=== PATIENT | female | born 1935 | race Caucasian/White ===

== ENCOUNTER → 2016-07-13 | Outpatient (CLI) | payer OTHER ==
[~2016-07-13] VITALS: Ht 160 cm; Wt 71.1 kg
[~2016-07-13] MED LIST: ASAC400T PO; ASPI81CH CHEW; CHLORHEXIDINE GLUCONATE 2 % 1 PACK (2 CLOTHS) TOPICAL PRN; DEXTROSE 5% IN WATE 1000ML INJ 1,000 ML IV SCH; INSULIN HUMAN REGULAR 1,000 UNITS/10 ML VIAL SQ PRN; LACTATED RINGER'S 1000 ML IV PRN; METO100T PO; METOPROLOL TARTRATE 25 MG TAB PO PRN; POVIDONE IODINE 5% (ANTISEPSIS KIT) 4 APPLICATIONS EACH NARE PRN; SODIUM CHLORID 0.9% 500 ML IV PRN; TOPR100T15 PO
[2016-07-13 13:02] VITALS: BP 187/92; PULSE 101; RESP 20; TEMP 98.7; O2SAT 98
[2016-07-13 14:25] VITALS: TEMP 98.2
[2016-07-13 14:45] VITALS: BP 150/82; PULSE 95; RESP 16; O2SAT 99
--- NOTE | 2016-07-14 06:39 | MR ---
cc: MAYURI CASTANON M.D., DAVID L. MD DATE 07/13/2016 PREOPERATIVE DIAGNOSIS Crohn's disease with sigmoid stricture. POSTOPERATIVE DIAGNOSIS Crohn's disease with sigmoid stricture. PROCEDURE Colonoscopy with biopsy and stricture. SURGEON Andrei Thomas MD ANESTHESIA MAC. INDICATION This is a 80-year with history of Crohn's disease for many years. The Crohn's has involved her left colon in a segmental fashion. She also has extensive diverticulosis. She underwent surveillance colonoscopy recently; a stricture was encountered in the mid-sigmoid. It was not possible to pass the colonoscope. The patient subsequently underwent a Gastrografin enema which showed a significant stricture in the sigmoid. A subsequent CAT scan showed two areas of colonic thickening in the sigmoid over the mid-sigmoid and proximal sigmoid colon. The patient presents for endoscopic visualization with the pediatric colonoscope. PROCEDURE The pediatric gastroscope was inserted from the anus to the ascending colon. It was felt that partial cecal visualization was achieved. The instrument was withdrawn. There were two areas of narrowing in the sigmoid colon. In the proximal sigmoid there were inflammatory folds and some mucosal changes suggestive of inflammatory bowel disease. A biopsy was obtained. In the mid-sigmoid colon there was an area that was a more significant fibrotic stricture associated with angulation. There were a few inflammatory changes present in this location. A biopsy was obtained. There were no visible changes of malignancy at either stricture site. The lumen was felt to be approximately 1 cm in size in the distal stricture and was somewhat larger in the proximal one. Extensive diverticulosis was noted. PLAN The patient will be followed in the office to discuss further management of these strictures after the biopsies are evaluated. MD VAISHNAVI Floyd/RAISA /2:22 PM /6:32 AM
--- NOTE | 2016-07-14 14:50 | EKG ---
Date Performed: 07/13/2016 Time Performed: 11:52:32 PTAGE: 80 years EKG: ATRIAL FIBRILLATION NONSPECIFIC ST & T-WAVE ABNORMALITY Compared to prior tracing the rate has slowed somewhat ABNORMAL RHYTHM ECG PREVIOUS TRACING : 01/21/2008 10.51 DOCTOR: Remington Woody Interpretating Date/Time 07/14/2016 14:48:30
== END ==
LOC: HEND 11:02
PROVIDERS: ATTEND Colon & Rectal Surgery
DX: K50.90 Crohn's disease, unspecified, without complications (principal); K56.69 Other intestinal obstruction; K57.90 Diverticulosis of intestine, part unspecified, without perforation or abscess without bleeding; R94.31 Abnormal electrocardiogram [ECG] [EKG]; K52.9 Noninfective gastroenteritis and colitis, unspecified
CPT/HCPCS: 88305; 93005

== ENCOUNTER → 2017-03-13 | Outpatient (CLI) | payer OTHER ==
[~2017-03-13] MED LIST changes: +ACETAMINOPHEN 1000 MG/100 ML 0 ML IV ONE; -ASAC400T PO; +ASPI-516 CHEW; -ASPI81CH CHEW; -CHLORHEXIDINE GLUCONATE 2 % 1 PACK (2 CLOTHS) TOPICAL PRN; -DEXTROSE 5% IN WATE 1000ML INJ 1,000 ML IV SCH; +HYDR-3516 PO; -INSULIN HUMAN REGULAR 1,000 UNITS/10 ML VIAL SQ PRN; -LACTATED RINGER'S 1000 ML IV PRN; -METOPROLOL TARTRATE 25 MG TAB PO PRN; -POVIDONE IODINE 5% (ANTISEPSIS KIT) 4 APPLICATIONS EACH NARE PRN; +RANI150T PO; -SODIUM CHLORID 0.9% 500 ML IV PRN; +SULF500T3 PO; -TOPR100T15 PO
[2017-03-13 10:45] LABS: HEMATOCRIT 34.5 % (35.0-46.0); HEMOGLOBIN 11.5 GM/DL (11.6-15.3); MEAN CELL VOLUME 86.7 FL (80.0-100.0); MEAN CORPUSCULAR HEMOGLOBIN 28.9 PG (27.0-34.0); MEAN CORPUSCULAR HGB CONC 33.3 % (32.0-36.0); MEAN PLATELET VOLUME 8.2 FL (7.0-11.0); PLATELET COUNT 348 TH/MM3 (150-450); RED BLOOD COUNT 3.98 MIL/MM3 (4.00-5.30); RED CELL DISTRIBUTION WIDTH 15.1 % (11.6-17.2); WHITE BLOOD COUNT 8.5 TH/MM3 (4.0-11.0)
--- NOTE | 2017-03-13 11:00 | RADRPT ---
EXAM DATE/TIME: 03/13/2017 10:45 [facility] COMPARISON: No previous studies available for comparison. INDICATIONS : Evaluate for pneumonia, pneumothorax or communicable disease. Preop chest for exploratory laparotomy on 03/15/17 MEDICAL HISTORY : None. SURGICAL HISTORY : None. ENCOUNTER: Initial ACUITY: 1 day PAIN SCORE: 0/10 LOCATION: Bilateral chest FINDINGS: There is a questionable faint 1.5 cm opacity density in the left midlung field PA view only. Nodule o r infiltrate not excludable. CT scan may be within consideration. Additionally appreciated is left ve ntricular cardiomegaly compensated. CONCLUSION: Questionable faint nodule left midlung field require further evaluation with CT scan. Compensated left ventricular cardiomegaly. José Luis Resendez MD on March 13, 2017 at 10:55 Board Certified Radiologist. This report was verified electronically.
[2017-03-13 11:15] LABS: INTERNATIONAL NORMALIZED RATIO 1.2 RATIO; PROTHROMBIN TIME - PATIENT 11.9 SEC (9.8-11.6)
[2017-03-13 11:16] LABS: ALBUMIN 3.6 GM/DL (3.4-5.0); ALT (GPT) 26 U/L (10-53); AST (GOT) 18 U/L (15-37); BICARBONATE 29.2 MEQ/L (21.0-32.0); BLOOD UREA NITROGEN 17 MG/DL (7-18); CALCIUM 9.5 MG/DL (8.5-10.1); CHLORIDE 106 MEQ/L (98-107); CREATININE 0.95 MG/DL (0.50-1.00); GLOMERULAR FILTRATION RATE 57 ML/MIN (>89); GLUCOSE,FASTING 100 MG/DL (74-99); SODIUM (NA) 141 MEQ/L (136-145)
[2017-03-13 11:18] LABS: ALKALINE PHOSPHATASE 122 U/L (45-117); TOTAL BILIRUBIN ADULT 0.4 MG/DL (0.2-1.0); TOTAL PROTEIN 8.3 GM/DL (6.4-8.2)
[2017-03-13 11:24] LABS: BILIRUBIN, URINE NEG (NEG); BLOOD, URINE TRACE (NEG); GLUCOSE,URINE NEG (NEG); KETONE, URINE NEG (NEG); MUCUS URINE FEW /lpf (OCC); NITRITE,URINE NEG (NEG); URINE COLOR YELLOW (YELLW/STRAW); URINE LEUKOCYTE ESTERASE NEG (NEG)
[2017-03-13 12:50] LABS: BANDS 7 % (0-6); LYMPHOCYTES 18 % (9-44); MONOCYTES 10 % (0-8); NEUTROPHIL # MANUAL DIFF 6.1 TH/MM3 (1.8-7.7); POLYS (SEG NEUTROPHILS) 65 % (16-70)
--- NOTE | 2017-03-14 15:09 | EKG ---
Date Performed: 03/13/2017 Time Performed: 10:31:26 PTAGE: 81 years EKG: Atrial fibrillation. Since previous tracing, no significant change noted Abnormal ECG PREVIOUS TRACING : 07/13/2016 11.52 DOCTOR: Elizabeth Hein Interpretating Date/Time 03/14/2017 15:08:53
== END ==
LOC: CPRE 09:38
PROVIDERS: ATTEND Colon & Rectal Surgery
DX: Z01.810 Encounter for preprocedural cardiovascular examination (principal); Z01.811 Encounter for preprocedural respiratory examination; Z01.812 Encounter for preprocedural laboratory examination; K50.10 Crohn's disease of large intestine without complications; I48.91 Unspecified atrial fibrillation; Z79.01 Long term (current) use of anticoagulants
CPT/HCPCS: 36415; 71046; 80053; 81001; 85007; 85027; 85610; 85730; 86850; 86900; 86901; 93005

== ENCOUNTER 2017-03-15 09:30 | Inpatient (IN) | payer OTHER, MEDICARE ==
[~2017-03-15] VITALS: Ht 157.5 cm; Wt 72.0 kg
[~2017-03-15 09:30] MED LIST changes: -ACETAMINOPHEN 1000 MG/100 ML 0 ML IV ONE; -HYDR-3516 PO
--- NOTE | 2017-03-15 09:59 | PD.HP.UP ---
H&P Update Note The Pre-Admit History and Physical Examination regarding the above named patient was reviewed (including, but not limited to, vital signs, heart, lungs, co-morbid conditions), and upon re-examination it is noted that: the patient's condition has not significantly changed since the last examination. Devon Kidd MD Mar 15, 2017 09:59
[2017-03-15] MEDS ORDERED: SODIUM CHLORID 0.9% 500 ML IV PRN (10:45)
[2017-03-15] MEDS ORDERED: POVIDONE IODINE 5% (ANTISEPSIS KIT) 4 APPLICATIONS EACH NARE PRN (10:45)
[2017-03-15] MEDS ORDERED: METRONIDAZOLE 500 MG/100 ML ISONTONIC SOLN IV SCH (10:45)
[2017-03-15] MEDS ORDERED: CHLORHEXIDINE GLUCONATE 2 % 1 PACK (2 CLOTHS) TOPICAL PRN (10:45)
[2017-03-15] MEDS ORDERED: ALVIMOPAN 12 MG CAPSULE - On Call PO SCH (10:45)
[2017-03-15] MEDS ORDERED: LACTATED RINGER'S 1000 ML IV PRN (10:45)
[2017-03-15] MEDS ORDERED: METOPROLOL TARTRATE 25 MG TAB PO PRN (10:45)
[2017-03-15] MEDS ORDERED: ceFAZolin 1,000 MG/NS 100 ML IV SCH ×2 (10:45)
[2017-03-15] MEDS ORDERED: DEXT 5%-NACL 0.9% 1000 ML INJ 1,000 ML IV SCH (11:00)
[2017-03-15 11:27] LABS: INTERNATIONAL NORMALIZED RATIO 1.2 RATIO; PROTHROMBIN TIME - PATIENT 12.5 SEC (9.8-11.6)
[2017-03-15] MEDS ORDERED: DO NOT ADM ANY ANTICOAGULANT DRUGS PRN (14:28)
[2017-03-15] MEDS ORDERED: ONDANSETRON HCL 4 MG/2 ML VIAL IV PUSH PRN (14:30)
[2017-03-15] MEDS ORDERED: ENALAPRILAT 1.25 MG/ML VIAL IV PUSH PRN (14:30)
[2017-03-15] MEDS ORDERED: POTASSIUM CHLOR 20 MEQ PREMIX 100 ML IV PRN (14:30)
[2017-03-15] MEDS ORDERED: MORPHINE SULFATE 30 MG/30 ML PCA IV SCH (14:30)
[2017-03-15] MEDS ORDERED: POTASSIUM CHLOR 40 MEQ PREMIX 100 ML IV PRN (14:30)
[2017-03-15] MEDS ORDERED: BENZOCAINE 6 MG/MENTHOL 10 MG LOZENGE BUCCAL PRN (14:30)
[2017-03-15] MEDS ORDERED: ENALAPRILAT 2.5 MG/2 ML VIAL IV PUSH PRN (14:30)
[2017-03-15] MEDS ORDERED: NALOXONE HCL 0.4 MG/ML AMP IV PUSH PRN (14:30)
[2017-03-15] MEDS ORDERED: Post-op Orders (for Pharmacy) XX ONE (14:30)
[2017-03-15] MEDS ORDERED: KETOROLAC TROMETHAMINE 30 MG/ML (IVP) VIAL IVP PRN (14:30)
[2017-03-15] MEDS ORDERED: *morphine SULFATE 4 MG/ML PERIprocedure ONLY ONE ×2 (14:43→15:13)
[2017-03-15] MEDS ORDERED: *HYDROmorphone PF 1 MG VIAL PERIprocedural Use ONLY ONE (15:19)
[2017-03-15] MEDS ORDERED: *ONDANSETRON 4 MG VIAL PERIprocedural Use ONLY ONE (15:29)
[2017-03-15] MEDS ORDERED: LABETALOL HCL 100 MG/20 ML VIAL ONE (15:31)
[2017-03-15] MEDS: D5-NS + KCL 20 MEQ INJ 1,000 ML IV SCH ×2 (15:50→23:52)
[2017-03-15] MEDS ORDERED: ACETAMINOPHEN 325 MG TAB PO PRN (17:00)
[2017-03-15 21:50] VITALS: BP 145/63; PULSE 80; RESP 19; TEMP 98.2; O2SAT 97
[2017-03-15] MEDS: metroNIDAZOLE 500 MG INJ 100 ML IV SCH (21:57)
[2017-03-15] MEDS: METOCLOPRAMIDE HCL 10 MG/2 ML VIAL IVS SCH (21:58)
[2017-03-15 22:00] VITALS: PULSE 98
[2017-03-15] MEDS: PCA - TOTAL MG MORPHINE DELIVERED PER SHIFT SCH ×2 (22:00→22:19)
[2017-03-15 23:10] VITALS: BP 140/71; PULSE 83; RESP 18; TEMP 98; O2SAT 98
[2017-03-15 23:15] VITALS: PULSE 88
[2017-03-16] VITALS (27 sets, daily range): BP systolic 121–150; BP diastolic 57–89; PULSE 80–114; RESP 14–20; TEMP 97.8–99.6; O2SAT 92–100
[2017-03-16] MEDS ORDERED: diphenhydrAMINE HCL 25 MG CAP PO PRN (00:45)
[2017-03-16 04:03] LABS: AUTOMATED NEUTROPHIL # 12.6 TH/MM3 (1.8-7.7); BASOPHIL % 0.1 % (0.0-2.0); HEMATOCRIT 30.9 % (35.0-46.0); HEMOGLOBIN 9.9 GM/DL (11.6-15.3); LYMPH % 4.3 % (9.0-44.0); LYMPHOCYTE # 0.6 TH/MM3 (1.0-4.8); MEAN CELL VOLUME 86.7 FL (80.0-100.0); MEAN CORPUSCULAR HEMOGLOBIN 27.8 PG (27.0-34.0); MEAN PLATELET VOLUME 7.9 FL (7.0-11.0); MONOCYTE # 1.1 TH/MM3 (0-0.9); NEUT % 87.6 % (16.0-70.0); PLATELET COUNT 321 TH/MM3 (150-450); RED BLOOD COUNT 3.56 MIL/MM3 (4.00-5.30); RED CELL DISTRIBUTION WIDTH 15.1 % (11.6-17.2); WHITE BLOOD COUNT 14.4 TH/MM3 (4.0-11.0)
[2017-03-16] MEDS: metroNIDAZOLE 500 MG INJ 100 ML IV SCH ×2 (04:10→14:50)
[2017-03-16 04:51] LABS: BICARBONATE 24.5 MEQ/L (21.0-32.0); CALCIUM 7.7 MG/DL (8.5-10.1); CREATININE 1.13 MG/DL (0.50-1.00)
[2017-03-16] MEDS: PCA - TOTAL MG MORPHINE DELIVERED PER SHIFT SCH ×3 (06:00→22:00)
--- NOTE | 2017-03-16 08:06 | HHI.PR ---
Subjective Remarks C/R Surg POD #1 afebrile, VSS UO good NIKOLAI min Objective - Vital Signs Date Time Temp Pulse Resp B/P (MAP) Pulse Ox O2 Delivery O2 Flow Rate FiO2 03/16/17 06:04 100 03/16/17 06:00 20 03/16/17 03:29 98.4 139/62 (87) 98 03/15/17 20:00 Nasal Cannula 2 Result Diagram: 03/16/17 0307 03/16/17 0307 Objective Remarks PE alert Abd - soft, wound dry, min tympany A/P Assessment and Plan Imp: stable post-op OOB tx to floor Devon Kidd MD Mar 16, 2017 08:06
[2017-03-16] MEDS: PANTOPRAZOLE SOD 40 MG DELAYED RELEASE TAB PO SCH (09:48)
[2017-03-16] MEDS: METOCLOPRAMIDE HCL 10 MG/2 ML VIAL IVS SCH ×2 (09:49→20:30)
[2017-03-16] MEDS: METOPROLOL TARTRATE 100 MG TAB PO SCH (09:49)
[2017-03-16] MEDS: D5-NS + KCL 20 MEQ INJ 1,000 ML IV SCH ×2 (09:53→20:30)
[2017-03-16] MEDS: PANTOPRAZOLE SODIUM 40 MG VIAL IVP SCH (09:53)
[2017-03-16] MEDS: ALVIMOPAN 12 MG CAPSULE - Post-op dosing PO SCH ×2 (09:54→20:31)
[2017-03-16] MEDS: HEPARIN SODIUM - SQ 10,000 UNITS/ML VIAL SQ SCH (14:13)
[2017-03-16] MEDS ORDERED: KETOROLAC TROMETHAMINE 30 MG/ML (IVP) VIAL IVP PRN (15:00)
[2017-03-16] MEDS ORDERED: ACETAMINOPHEN 1000 MG/100 ML 100 ML IV ONE (17:52)
[2017-03-16] MEDS ORDERED: ALVIMOPAN 12 MG CAPSULE PO SCH (21:00)
[2017-03-17] VITALS (11 sets, daily range): BP systolic 142–163; BP diastolic 71–85; PULSE 98–124; RESP 18–19; TEMP 98.8–99.1; O2SAT 93–95
[2017-03-17] MEDS ORDERED: METOPROLOL TARTRATE 5 MG/5 ML VIAL IV PUSH SCH (00:45)
[2017-03-17] MEDS: HEPARIN SODIUM - SQ 10,000 UNITS/ML VIAL SQ SCH ×2 (00:53→14:23)
[2017-03-17] MEDS: D5-NS + KCL 20 MEQ INJ 1,000 ML IV SCH ×2 (05:02→15:34)
[2017-03-17] MEDS: PCA - TOTAL MG MORPHINE DELIVERED PER SHIFT SCH ×3 (05:35→22:00)
[2017-03-17 06:29] LABS: AUTOMATED NEUTROPHIL # 14.7 TH/MM3 (1.8-7.7); BASOPHIL # 0.1 TH/MM3 (0-0.2); BASOPHIL % 0.3 % (0.0-2.0); EOSINOPHIL % 0.2 % (0.0-4.0); HEMATOCRIT 29.9 % (35.0-46.0); HEMOGLOBIN 9.4 GM/DL (11.6-15.3); LYMPHOCYTE # 1.6 TH/MM3 (1.0-4.8); MEAN CELL VOLUME 86.7 FL (80.0-100.0); MEAN CORPUSCULAR HEMOGLOBIN 27.3 PG (27.0-34.0); MEAN CORPUSCULAR HGB CONC 31.5 % (32.0-36.0); MEAN PLATELET VOLUME 8.1 FL (7.0-11.0); MONO % 9.5 % (0.0-8.0); MONOCYTE # 1.7 TH/MM3 (0-0.9); PLATELET COUNT 294 TH/MM3 (150-450); RED BLOOD COUNT 3.45 MIL/MM3 (4.00-5.30); RED CELL DISTRIBUTION WIDTH 15.2 % (11.6-17.2); WHITE BLOOD COUNT 18.2 TH/MM3 (4.0-11.0)
[2017-03-17 07:03] LABS: BICARBONATE 25.4 MEQ/L (21.0-32.0); CALCIUM 8.5 MG/DL (8.5-10.1); CREATININE 0.79 MG/DL (0.50-1.00)
[2017-03-17] MEDS: PANTOPRAZOLE SODIUM 40 MG VIAL IVP SCH (09:00)
[2017-03-17] MEDS ORDERED: METOPROLOL TARTRATE 5 MG/5 ML VIAL IV PUSH PRN (09:00)
[2017-03-17] MEDS: FUROSEMIDE 20 MG/2 ML VIAL IV PUSH SCH ×2 (09:45→21:03)
[2017-03-17] MEDS: METOCLOPRAMIDE HCL 10 MG/2 ML VIAL IVS SCH ×2 (09:45→21:02)
[2017-03-17] MEDS: PANTOPRAZOLE SOD 40 MG DELAYED RELEASE TAB PO SCH (09:49)
[2017-03-17] MEDS: METOPROLOL TARTRATE 100 MG TAB PO SCH (09:49)
[2017-03-17] MEDS: ALVIMOPAN 12 MG CAPSULE - Post-op dosing PO SCH ×2 (10:45→21:00)
--- NOTE | 2017-03-17 17:49 | HHI.PR ---
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
[2017-03-18] VITALS (7 sets, daily range): BP systolic 120–159; BP diastolic 67–87; PULSE 93–117; RESP 16–19; TEMP 96.3–98.7; O2SAT 93–97
[2017-03-18] MEDS: HEPARIN SODIUM - SQ 10,000 UNITS/ML VIAL SQ SCH ×2 (03:05→15:31)
[2017-03-18] MEDS: D5-NS + KCL 20 MEQ INJ 1,000 ML IV SCH ×2 (04:17→20:35)
[2017-03-18] MEDS: PCA - TOTAL MG MORPHINE DELIVERED PER SHIFT SCH (06:00)
[2017-03-18] MEDS: PANTOPRAZOLE SODIUM 40 MG VIAL IVP SCH (09:00)
[2017-03-18] MEDS: PANTOPRAZOLE SOD 40 MG DELAYED RELEASE TAB PO SCH (09:04)
[2017-03-18] MEDS: METOPROLOL TARTRATE 100 MG TAB PO SCH (09:04)
[2017-03-18] MEDS: ALVIMOPAN 12 MG CAPSULE - Post-op dosing PO SCH ×2 (09:04→20:36)
[2017-03-18] MEDS: METOCLOPRAMIDE HCL 10 MG/2 ML VIAL IVS SCH ×2 (09:05→20:35)
[2017-03-18] MEDS: FUROSEMIDE 20 MG/2 ML VIAL IV PUSH SCH ×2 (09:05→20:36)
--- NOTE | 2017-03-18 09:36 | HHI.PR ---
Subjective Remarks Pt sitting on commode. Passing flatus. No BMs yet. Some Nausea last PM. No vomiting Objective Vital Signs Date Time Temp Pulse Resp B/P (MAP) Pulse Ox O2 Delivery O2 Flow Rate FiO2 03/18/17 08:00 97.7 112 17 150/87 (108) 97 03/18/17 06:00 20 03/18/17 04:54 97.7 113 19 158/82 (107) 94 03/18/17 04:00 117 03/18/17 00:00 107 03/18/17 00:00 98.7 117 19 152/78 (102) 93 03/17/17 22:00 20 03/17/17 20:49 99.0 107 19 142/71 (94) 94 03/17/17 16:00 98.9 112 18 150/85 (106) 95 03/17/17 16:00 98 03/17/17 12:25 99.0 99 18 160/75 (103) 95 I/O 03/17/17 03/17/17 03/17/17 03/18/17 03/18/17 03/18/17 07:00 15:00 23:00 07:00 15:00 23:00 Intake Total 480 ml 2186 ml 2 ml Output Total 600 ml 2615 ml 1050 ml Balance -120 ml -429 ml -1048 ml Intake Oral 480 ml 60 ml IV Total 2126 ml 2 ml Output Urine Total 550 ml 2575 ml 1000 ml Drainage Total 50 ml 40 ml 50 ml # Bowel Movements 0 Result Diagram: 03/17/17 0523 03/17/17 05 Objective Remarks VS-S Abd: midline wound clean. Upper hemalatha remain I&Os-OK Assessment and Plan Assessment and Plan Stable POD#3 D/C PAINT STRIPPER. Ambulate. D/C telemetry. Regular soft diet Gregg Reilly MD Mar 18, 2017 09:36
--- NOTE | 2017-03-18 19:06 | MP ---
cc: JL GERMAN M.D. DATE OF SURGERY: 03/15/2017. PREOPERATIVE DIAGNOSIS: 1. Multiple colonic strictures. 2. History of Crohn's disease. POSTOPERATIVE DIAGNOSIS: 1. Multiple colonic strictures. 2. History of Crohn's disease. OPERATIVE PROCEDURE PERFORMED: Exploratory laparotomy with proctosigmoidectomy SURGEON: Jl German MD. PATIENT PORTAL REPRESENTATIVE: Andrei Thomas MD. DESCRIPTION OF THE PROCEDURE IN DETAIL: The patient was placed in the supine position. After adequate general anesthesia, her legs were placed in the universal stirrups and supported appropriately. The abdomen and perineum were then prepped with Betadine solution and draped in the usual sterile fashion. With Dr. Thomas's assistance, the abdomen was opened through a midline incision. Exploration revealed an inflammatory mass in the sigmoid colon stuck down to the left pelvic sidewall. This was consistent with her known strictures. There was some diverticular disease within the same region of the colon. The proximal colon was palpated and felt to be pretty unremarkable. Small bowel was run from the ligament Treitz down to ileocecal valve and felt to be normal. No evidence of any fat wrapping or inflammatory process was seen. Liver and gallbladder were pretty unremarkable. Stomach and duodenum were normal. Uterus and ovaries were surgically absent. Great vessels were of normal caliber. First, the sigmoid colon was mobilized medially by dividing along the white line of Toldt. The left ureter was identified and carefully preserved. Dissection then proceeded up the left gutter taking down attachments to the retroperitoneum mobilizing the splenic flexure and entering the lesser sac and taking the gastrocolic omentum off the transverse colon. The right retroperitoneal space was then opened and the bowel dissected off the presacral fascia. The pedicle for the superior hemorrhoidal vessels was identified and divided between Kellys obtaining hemostasis with Vicryl ties. The left colic vessels were similarly taken for full left mobilization. Dissection then proceeded down to the pelvis mobilizing the rectosigmoid off the presacral fascia toward the pelvic floor. The rectum did appear to be normal and a point in the proximal rectum was chosen at which point the mesorectum was divided and the bowel finally divided using a pursestring suture device and a Justen clamp. The bowel was then sized to reach the rectal pouch without tension and with good blood supply dividing the marginal artery at the appropriate point in the descending colon. Bowel was then divided between a pursestring suture device and a Justen clamp removing the specimen. The end of the bowel was sized to accept a 33-mm EEA stapling anvil. This was secured with a pursestring suture. Dr. Thomas inserted the stapling instrument transanally under direct vision and it was brought up to the end of the rectal pouch and the pursestring suture tied. The stapler was then reassembled and the bowel aligned properly and the stapler closed and fired. Upon withdrawal, two complete doughnuts of tissue were seen. Gentle insufflation did confirm an airtight anastomosis. The abdomen was then irrigated copiously with normal saline. Adequate hemostasis was achieved. The omentum was passed down the left gutter and wrapped around the anastomosis. The midline incision was closed anatomically in one layer using #1 PDS sutures to reapproximate the midline fascia. The subcu tissues were irrigated copiously and the skin closed with a running subcuticular Vicryl suture. The wound area was washed with normal saline and dried. Sterile dressing of Telfa and gauze applied. It should be noted a Roman-Vazquez drain was placed in the presacral space and brought out through a stab wound in the right lower quadrant and secured to the skin with a nylon suture. The patient tolerated the procedure quite well and was brought to the recovery room in stable condition. Sponge and needle counts were correct at the end of procedure. MD BRET Lao/GRICELDA /9:59 AM /6:55 PM
[2017-03-18] MEDS: ACETAMINOPHEN/HYDROcodone 325 MG/5 MG TAB PO PRN (20:43)
[2017-03-19] VITALS: BP 135/74; PULSE 109; RESP 17; TEMP 97.2; O2SAT 96
[2017-03-19] MEDS: HEPARIN SODIUM - SQ 10,000 UNITS/ML VIAL SQ SCH ×2 (02:24→14:15)
[2017-03-19] MEDS: ACETAMINOPHEN/HYDROcodone 325 MG/5 MG TAB PO PRN ×3 (02:30→20:52)
[2017-03-19 08:00] VITALS: BP 152/80; PULSE 108; RESP 19; TEMP 97.4; O2SAT 94
[2017-03-19] MEDS: PANTOPRAZOLE SOD 40 MG DELAYED RELEASE TAB PO SCH (08:36)
[2017-03-19] MEDS: METOPROLOL TARTRATE 100 MG TAB PO SCH (08:36)
[2017-03-19] MEDS: ALVIMOPAN 12 MG CAPSULE - Post-op dosing PO SCH ×2 (08:36→20:44)
[2017-03-19] MEDS: PANTOPRAZOLE SODIUM 40 MG VIAL IVP SCH (08:36)
[2017-03-19] MEDS: FUROSEMIDE 20 MG/2 ML VIAL IV PUSH SCH ×2 (08:36→20:44)
[2017-03-19] MEDS: METOCLOPRAMIDE HCL 10 MG/2 ML VIAL IVS SCH ×2 (08:37→20:44)
[2017-03-19] MEDS: D5-NS + KCL 20 MEQ INJ 1,000 ML IV SCH (08:37)
--- NOTE | 2017-03-19 09:52 | HHI.PR ---
Subjective Remarks No more Nausea. Small smear BM. No profuse stooling. Less pain. Ambulating. Tolerating PO. Objective Vital Signs Date Time Temp Pulse Resp B/P (MAP) Pulse Ox O2 Delivery O2 Flow Rate FiO2 03/19/17 08:00 97.4 108 19 152/80 (104) 94 03/19/17 00:00 97.2 109 17 135/74 (94) 96 03/18/17 20:00 97.9 96 16 159/73 (101) 96 03/18/17 16:00 96.8 103 18 142/67 (92) 97 03/18/17 12:00 96.3 93 18 120/70 (87) 97 I/O 03/18/17 03/18/17 03/18/17 03/19/17 03/19/17 03/19/17 07:00 15:00 23:00 07:00 15:00 23:00 Intake Total 2 ml 1900 ml 120 ml Output Total 1050 ml 670 ml 40 ml Balance -1048 ml 1230 ml 80 ml Intake Oral 900 ml 120 ml IV Total 2 ml 1000 ml Output Urine Total 1000 ml 400 ml Stool Total 200 ml Drainage Total 50 ml 70 ml 40 ml # Voids 3 Result Diagram: 03/17/17 0523 03/17/17 0523 Objective Remarks VS-S Abd: midline wound clean. Upper hemalatha remain I&Os-OK- NIKOLAI still with 100cc drainage Assessment and Plan Assessment and Plan Stable POD#4 Continue Regular soft diet, Ambulate. Possible D/C tomorrow. Staple removal later this week. Leave drain till D/C Gregg Reilly MD Mar 19, 2017 09:52
[2017-03-19 12:00] VITALS: BP 138/76; PULSE 103; RESP 18; TEMP 96.1; O2SAT 100
[2017-03-19 16:00] VITALS: BP 139/85; PULSE 108; RESP 18; TEMP 97; O2SAT 97
[2017-03-19 20:00] VITALS: BP 147/83; PULSE 112; RESP 16; TEMP 97.8; O2SAT 96
[2017-03-20 00:06] VITALS: BP 143/82; PULSE 75; RESP 18; TEMP 98.1; O2SAT 98
[2017-03-20] MEDS: HEPARIN SODIUM - SQ 10,000 UNITS/ML VIAL SQ SCH ×2 (02:11→12:49)
[2017-03-20] MEDS: ACETAMINOPHEN/HYDROcodone 325 MG/5 MG TAB PO PRN ×2 (05:09→16:21)
[2017-03-20] MEDS: D5-NS + KCL 20 MEQ INJ 1,000 ML IV SCH (05:10)
[2017-03-20 08:00] VITALS: BP 146/75; PULSE 125; RESP 18; TEMP 98; O2SAT 97
[2017-03-20] MEDS: ALVIMOPAN 12 MG CAPSULE - Post-op dosing PO SCH (08:15)
[2017-03-20] MEDS: PANTOPRAZOLE SOD 40 MG DELAYED RELEASE TAB PO SCH (08:16)
[2017-03-20] MEDS: METOPROLOL TARTRATE 100 MG TAB PO SCH (08:16)
[2017-03-20] MEDS: PANTOPRAZOLE SODIUM 40 MG VIAL IVP SCH (08:17)
[2017-03-20] MEDS: FUROSEMIDE 20 MG/2 ML VIAL IV PUSH SCH (08:17)
[2017-03-20] MEDS: METOCLOPRAMIDE HCL 10 MG/2 ML VIAL IVS SCH (08:18)
[2017-03-20 12:00] VITALS: BP 137/65; PULSE 108; RESP 18; TEMP 97.2; O2SAT 96
[2017-03-20] MEDS ORDERED: HYDR-3516 PO (17:11)
--- NOTE | 2017-03-20 17:38 | HHI.PR ---
Subjective Remarks C/R Surg POD #5 afebrile, VSS UO good NIKOLAI min +BM Objective - Vital Signs Date Time Temp Pulse Resp B/P (MAP) Pulse Ox O2 Delivery O2 Flow Rate FiO2 03/20/17 12:00 97.2 108 18 137/65 (89) 96 Result Diagram: 03/17/1752203/17/17522 Objective Remarks PE alert Abd - soft, wound dry, min tympany A/P Assessment and Plan Imp: OOB decr IVF adv diet dc home Devon Kidd MD Mar 20, 2017 17:38
== END 2017-03-20 17:25 | disposition home or self-care (01) | DRG 330 ==
LOC: HSDI 09:44 → HCPC 20:33 → HCIS 03-16 11:54 → N07B 03-17 16:36
PROVIDERS: ADMIT Colon & Rectal Surgery; ATTEND Colon & Rectal Surgery
PROC: 0DBP0ZZ Excision of Rectum, Open Approach (ICD-10-PCS; 2017-03-15)
PROC: 0DBN0ZZ Excision of Sigmoid Colon, Open Approach (ICD-10-PCS; principal; 2017-03-15 12:09)
DX: K56.699 Other intestinal obstruction unspecified as to partial versus complete obstruction (principal); K50.10 Crohn's disease of large intestine without complications; I48.91 Unspecified atrial fibrillation; K21.9 Gastro-esophageal reflux disease without esophagitis; K57.30 Diverticulosis of large intestine without perforation or abscess without bleeding; Z88.0 Allergy status to penicillin; Z86.010 Personal history of colon polyps; Z79.01 Long term (current) use of anticoagulants
CPT/HCPCS: 80048; 85025; 85610; 88307; 94150; J0131; J0690; J1170; J1644; J1940; J2270; J2405; J2765; J3010; J3480; J7120